=== PATIENT | female | born 1970 | race Caucasian/White ===

== ENCOUNTER → 2016-11-18 | Outpatient (CLI) | payer OTHER ==
--- NOTE | 2016-11-18 12:08 | MA ---
Screening Digital Mammogram With iCAD Analysis Clinical Indications: Routine screening. Technique: Standard cephalocaudal and mediolateral oblique projections were obtained. This examinatio n was processed by the iCAD computer aided detection system. Comparison: Baseline study; no previous mammograms have been performed. Breast density: Type C; Heterogeneously dense. Findings: CAD was reviewed. No masses, suspicious calcifications or other signs of malignancy are id entified. Impression: Negative mammogram. BI-RADS 1. Recommendation: Annual screening as long as physical examination is negative in this patient with het erogeneously dense breasts. [facility] will send a result letter to the patient. Dense breast parenchyma diminishes mammographic sensitivity. Negative mammography should not preclude additional workup of a clinically suspicious finding. The patient's information is entered into a reminder system with a target due date for her next mammo gram.
--- NOTE | 2016-11-19 08:04 | DX ---
DEXA Bone Densitometry Technique: DEXA scan was performed on Eqlim Discovery W Bone Densitometer Indication: Osteopenia Comparator Study: September 2010 Results: Lumbar Spine BMD: 0.898 T-score: -1.4 Prior BMD: 0.808 % change: +11.2% Total Hip (Right) BMD: 0.806 T-score: -1.1 Femoral Neck (Right) BMD: 0.694 T-score: -1.4 Total Hip (Left) BMD: 0.831 T-score: 0.9 Prior BMD: 0.709 % change: +17.3% Femoral Neck (Left) BMD: 0.709 T-score: -1.3 CONCLUSION: Low bone mineral density In comparison the prior study from September 2010, the patient's measured BMD in the lumbar spine and hip regions has increased significantly ADDITIONAL COMMENTS: By FRAX calculation, the estimated 10 year risk of any major osteoporotic fracture is 2.3%. The dante mated 10 year risk of hip fracture is 0.2%. Consider repeating the study in 3-4 years if clinically indicated NOTE: The risk of osteoporotic fractures increases approximately twofold for each 1.0 SD decrease i n T-score. The T-score represents the standard deviations from a young normal, same sex, reference population. Low bone density is not the only risk factor for fracture. Clinical factors to consider include fal l risk, previous osteoporotic fractures, family history of fractures, smoking, and low body weight. Patients who have an unexpectedly low BMD may need to be evaluated for secondary causes of low bone mineral density. In comparing the present study to a prior study, lack of a significant increase or decrease in BMD m ay signify efficacy of the patient's present treatment. Bone mineral density measurements performed with densitometers produced by different manufacturers a re not comparable. For the most reproducible BMD measurement, subsequent exams should be performed on the same densitometer.
== END ==
LOC: BMCIMAGING 10:54
PROVIDERS: ATTEND Physician Assistant
DX: Z12.31 Encounter for screening mammogram for malignant neoplasm of breast (principal); Z13.820 Encounter for screening for osteoporosis; M85.80 Other specified disorders of bone density and structure, unspecified site

== ENCOUNTER → 2017-07-29 | Outpatient (CLI) | payer OTHER | LOC: BMCIMAGING 10:31 | PROVIDERS: ATTEND Physician Assistant | DX: R07.89 Other chest pain (principal); R06.09 Other forms of dyspnea ==